=== PATIENT | female | born 1965 ===

== ENCOUNTER 2018-05-08 16:52 | Emergency (ER) | payer MEDICAID ==
[2018-05-08 17:39] VITALS: BP 113/82; PULSE 98; RESP 20; TEMP 98.3; O2SAT 96
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
== END 2018-05-08 19:32 | disposition home or self-care (01) ==
LOC: C.ER 16:52
DX: S43.402A Unspecified sprain of left shoulder joint, initial encounter (principal); Y08.89XA Assault by other specified means, initial encounter; T76.11XA Adult physical abuse, suspected, initial encounter

== ENCOUNTER 2018-08-16 07:32 | Emergency (ER) | payer SELFPAY ==
[2018-08-16 07:41] VITALS: BP 143/81; PULSE 94; RESP 18; TEMP 98.2; O2SAT 98
--- NOTE | 2018-08-16 08:09 | C.PDOC ---
History Of Present Illness 52 y/o female presents to the ER for evaluation of right shoulder pain which developed in the morning today. Pt states that she was sleeping and when she woke up, her shoulder was "hurting." Pt reports that the pain is localized and the pain is worse with movement. Denies having direct trauma, CP, SOB, dyspnea, palpitation, denies weakness, sensory or vascular deficits to Right arm. At present time, appears upset, crying. Time Seen by Provider: 08/16/18 07:47 Chief Complaint (Nursing): Upper Extremity Problem/Injury History Per: Patient History/Exam Limitations: no limitations Onset/Duration Of Symptoms: Hrs Current Symptoms Are (Timing): Still Present Severity: Moderate Past Medical History Reviewed: Historical Data, Nursing Documentation, Vital Signs Vital Signs: Last Vital Signs Temp 98.2 F 08/16/18 07:37 Pulse 94 H 08/16/18 07:37 Resp 18 08/16/18 07:37 BP 143/81 08/16/18 07:37 Pulse Ox 98 08/16/18 07:37 - Medical History PMH: Anxiety, Back Problems, Depression Denies: Chronic Kidney Disease Surgical History: No Surg Hx Family History: States: No Known Family Hx - Social History Hx Tobacco Use: No Hx Alcohol Use: No Hx Substance Use: No - Immunization History Hx Tetanus Toxoid Vaccination: No Hx Influenza Vaccination: No Hx Pneumococcal Vaccination: No Review Of Systems Except As Marked, All Systems Reviewed And Found Negative. Constitutional: Negative for: Fever, Chills Cardiovascular: Negative for: Chest Pain Respiratory: Negative for: Shortness of Breath Musculoskeletal: Positive for: Shoulder Pain (right shoulder pain) Neurological: Negative for: Weakness, Numbness Physical Exam - Physical Exam Appears: Well, Non-toxic, Other (emotionally distressed, crying) Skin: Normal Color, Warm, Dry Head: Normacephalic Eye(s): bilateral: PERRL Nose: No Flaring Oral Mucosa: Moist Neck: Trachea Midline, Supple Chest: Symmetrical, No Deformity Cardiovascular: Rhythm Regular, No Murmur, No JVD Respiratory: No Decreased Breath Sounds, No Accessory Muscle Use, No Rales, No Rhonchi, No Stridor, No Wheezing Extremity: Normal ROM, Tenderness (tenderness over superior aspect of right shoulder), Capillary Refill (less than 2sec to Right hand), No Deformity, No Swelling Pulses: Right Radial: Normal Neurological/Psych: Oriented x3, Normal Speech, Normal Motor, Normal Sensation, Normal Reflexes ED Course And Treatment O2 Sat by Pulse Oximetry: 98 (RA) Pulse Ox Interpretation: Normal - Other Rad Right shoulder X-Ray: Interpreted by Me, Viewed By Me Interpretation: (+) DJD, no acute fx or dislocation Progress Note: X-Ray- Right shoulder ordered.Patient treated with Tramadol PO. On re-eval, pt afebrile, hemodynamicaly stable. NOn-toxic. Ambulatoyr in ED with stable giat. Neck: USpple. Lungs: CTA B/L, BS equal B/L. CVS: (+)S1S2, reg. RUE: mild tenderness over superior aspect RT shoulder. FAROM, no neuorvascular deficits, no skin changes. Imaging review and appear normal. Pt has clinical findings c/w Right shoulder tendonitis. Pt advised. ref. to f/u with PMD in 2-3 days for re-eavl. Disposition Counseled Patient/Family Regarding: Studies Performed, Diagnosis, Need For Followup, Rx Given - Disposition Referrals: [facility] [Outside] Disposition: HOME/ ROUTINE Disposition Time: 08:20 Condition: STABLE Additional Instructions: LIght duty, avoid Right arm lifting Take pain medication as need Follow up with PMD, Orthopedist in 2-3 days for re-evaluation. return if any new changes. Prescriptions: traMADol [Ultram] 50 mg PO TID #7 tab Instructions: Tendonitis Forms: [employer] (Gibraltarian) - Clinical Impression Clinical Impression: Shoulder tendonitis - PA / SENIOR CLIENT ADVISOR / Resident Statement MD/DO has reviewed & agrees with the documentation as recorded. - Scribe Statement The provider has reviewed the documentation as recorded by the Roger Valdez Provider Attestation All medical record entries made by the Friedaibe were at my direction and personally dictated by me. I have reviewed the chart and agree that the record accurately reflects my personal performance of the history, physical exam, medical decision making, and the department course for this patient. I have also personally directed, reviewed, and agree with the discharge instructions and disposition.
--- NOTE | 2018-08-16 08:58 | RAD ---
Date of service: 08/16/2018 PROCEDURE: Radiographs of the Right Shoulder HISTORY: pain COMPARISON: No prior. FINDINGS: BONES: No acute fracture or destructive bony lesion identified. Limited fibrocystic changes are identified at the right humeral head. JOINTS: Mild degenerative changes seen the acromioclavicular joint and moderate at the glenohumeral joint which are intact without subluxation or dislocation apparent. SOFT TISSUES: Normal. OTHER FINDINGS: None. IMPRESSION: Mild degenerative changes right glenohumeral joint, moderate at the acromioclavicular joint.
== END 2018-08-16 09:04 | disposition home or self-care (01) ==
LOC: C.ER 07:32
DX: M75.91 Shoulder lesion, unspecified, right shoulder (principal)